=== PATIENT | female | born 1930 | race Caucasian/White ===

== ENCOUNTER 2018-05-16 10:04 | Emergency (ER) | payer MEDICARE, OTHER ==
[~2018-05-16] VITALS: Ht 157.5 cm; Wt 63.5 kg
[~2018-05-16 10:04] MED LIST: AGGRENOX CAPSU1 EACH; BLOOD PRESSURE MED; BONIVA150 MG; CRESTOR; DIOVAN; DOXYCYCLINE 10100 MG PO; IMIPRAMINE HCL25 MG; LORAZEPAM 1 MG T1 M1; MINIPRIN81 MG; NORCO 5-325 TA1 EACH PO; THYROID MED; ZOFRAN ODT4 MG PO
[2018-05-16] MEDS ORDERED: LIPITOR10 MG PO (10:23)
[2018-05-16] MEDS ORDERED: VITAMIN C500 MG/15 PO (10:24)
[2018-05-16] MEDS ORDERED: SYNTHROID50 MCG PO (10:24)
[2018-05-16 10:25] LABS: URINE BILIRUBIN NEGATIVE (Negative); URINE BLOOD NEGATIVE (Negative); URINE CLARITY CLEAR; URINE COLOR YELLOW; URINE GLUCOSE-RANDOM NEGATIVE (Negative); URINE KETONES NEGATIVE (Negative); URINE LEUKOCYTES-REFLEX NEGATIVE (Negative); URINE NITRITE-REFLEX NEGATIVE (Negative); URINE PROTEIN NEGATIVE (Negative); URINE SPECIFIC GRAVITY 1.015 (1.005-1.030); URINE UROBILINOGEN 0.2 E.U./dl (0.2-1.0)
[2018-05-16 10:47] LABS: ABSOLUTE BASOPHILS 0.1 thou/uL (0.0-0.2); ABSOLUTE EOSINOPHILS 0.2 thou/uL (0.0-0.7); ABSOLUTE MONOCYTES 0.8 thou/uL (0.0-1.2); ABSOLUTE NEUTROPHILS 6.1 thou/uL (1.6-8.1); BASOPHILS 0.8 %; EOSINOPHILS 1.7 %; HEMATOCRIT 41.6 % (37.0-47.0); HEMOGLOBIN 13.9 gm/dL (12.0-15.0); LYMPHOCYTES 21.6 %; MCH 30.4 pg (26.0-34.0); MCHC 33.5 g/dL (28.0-37.0); MCV 90.8 fL (80.0-100.0); MONOCYTES 8.5 %; MPV 7.5 fl. (7.2-11.1); NUCLEATED RBCS 0 /100WBC; PLATELET COUNT* 324 thou/uL (150-400); POLYS 67.4 %; RBC 4.58 mil/uL (4.20-5.00); RDW-CV 13.6 % (10.5-14.5); WBC 9.1 thou/uL (4.0-11.0)
[2018-05-16 11:00] LABS: ANION GAP 5 mmol/L (7-16); BUN 16 mg/dL (7-18); CALCIUM 9.5 mg/dL (8.5-10.1); CHLORIDE 104 mmol/L (98-107); CO2 31 mmol/L (21-32); CREATININE 0.8 mg/dL (0.6-1.3); GLUCOSE 87 mg/dL (70-99); POTASSIUM 3.6 mmol/L (3.5-5.1); SODIUM 140 mmol/L (136-145)
[2018-05-16 11:06] LABS: ALBUMIN 3.2 g/dL (3.4-5.0); ALKALINE PHOSPHATASE 63 U/L (46-116); LIPASE 202 U/L (73-393); SGOT 23 U/L (15-37); SGPT 29 U/L (30-65); TOTAL BILIRUBIN 0.4 mg/dL (<0.1-1.0); TOTAL PROTEIN 7.4 g/dL (6.4-8.2); TROPONIN-I LEVEL <0.06 ng/mL (<0.06)
[2018-05-16 12:11] VITALS: BP 175/94
--- NOTE | 2018-05-16 16:11 | EKG ---
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 KO[employer] : 1930 Requested By: Ericka Phipps Order Number: [id number] MD: Nirav Silverman Measurements Intervals Kil[place] Rate: 84 P: 14 WA: 144 QRS: -6 QRSD: 89 T: 28 QT: 364 QTc: 431 Interpretive Statements Sinus arrhythmia Ventricular premature complex Compared to ECG 06/09/2008 23:19:45 Ventricular premature complex(es) now present Sinus rhythm no longer present Electronically Signed On 05-16-2018 16:11:28 CDT by Nirav Silverman [email or web address] <ELECTRONICALLY SIGNED> By: Nirav Silverman MD, [facility] 05/16/18 1611 1027 1027 Nirav Silverman MD, [facility] /EPI
== END 2018-05-16 12:14 | disposition home or self-care (01) ==
LOC: M.ERS 10:04
PROVIDERS: Physician Assistant
DX: R19.4 Change in bowel habit (principal); Z71.1 Person with feared health complaint in whom no diagnosis is made; I10 Essential (primary) hypertension; Z90.49 Acquired absence of other specified parts of digestive tract; Z90.710 Acquired absence of both cervix and uterus; Z88.0 Allergy status to penicillin; Z88.1 Allergy status to other antibiotic agents; Z88.8 Allergy status to other drugs, medicaments and biological substances

== ENCOUNTER → 2018-07-29 | Outpatient (CLI) | payer MEDICARE, OTHER ==
[~2018-07-29] MED LIST changes: +LIPITOR10 MG PO; +SYNTHROID50 MCG PO; +VITAMIN C500 MG/15 PO
[2018-07-29 14:32] LABS: ABSOLUTE BASOPHILS 0.1 thou/uL (0.0-0.2); ABSOLUTE EOSINOPHILS 0.2 thou/uL (0.0-0.7); ABSOLUTE LYMPHOCYTES 2.1 thou/uL (0.8-5.3); ABSOLUTE MONOCYTES 0.7 thou/uL (0.0-1.2); ABSOLUTE NEUTROPHILS 4.1 thou/uL (1.6-8.1); BASOPHILS 1.1 %; EOSINOPHILS 3.2 %; HEMATOCRIT 39.1 % (37.0-47.0); LYMPHOCYTES 29.4 %; MCH 30.3 pg (26.0-34.0); MCHC 33.2 g/dL (28.0-37.0); MCV 91.3 fL (80.0-100.0); MPV 7.6 fl. (7.2-11.1); NUCLEATED RBCS 0 /100WBC; PLATELET COUNT* 282 thou/uL (150-400); POLYS 56.3 %; RBC 4.28 mil/uL (4.20-5.00); RDW-CV 13.2 % (10.5-14.5); WBC 7.3 thou/uL (4.0-11.0)
[2018-07-29 14:34] LABS: CALCIUM 9.1 mg/dL (8.5-10.1); CREATININE 0.8 mg/dL (0.6-1.3); POTASSIUM 3.7 mmol/L (3.5-5.1)
== END ==
LOC: M.LAB 14:16
PROVIDERS: Nurse Practitioner
DX: I48.1 Persistent atrial fibrillation (principal); I10 Essential (primary) hypertension

== ENCOUNTER → 2021-09-03 | Outpatient (CLI) | payer MEDICARE, OTHER | LOC: M.RAD 12:12 | PROVIDERS: ATTEND Orthopaedic Surgery | DX: M25.561 Pain in right knee (principal) ==